=== PATIENT | male | born 1975 | race Caucasian/White ===

== ENCOUNTER 2017-10-29 16:03 | Emergency (ER) | payer OTHER ==
[~2017-10-29] VITALS: Ht 185.4 cm; Wt 120.0 kg
[~2017-10-29 16:03] MED LIST: AMOXICILLIN/CL875 MG OR; CITALOPRAM20 MG PO; HYDROCHLORO25 MG/TAB PO; KEFLEX500 M1 PO; SYNTHROID50 MCG PO
[2017-10-29] MEDS ORDERED: SYNTHROID100 MCG PO (17:05)
[2017-10-29 17:40] VITALS: BP 131/82
== END 2017-10-29 17:40 | disposition home or self-care (01) | DRG 951 ==
LOC: ED 16:03
DX: Z77.098 Contact with and (suspected) exposure to other hazardous, chiefly nonmedicinal, chemicals (principal); Y92.89 Other specified places as the place of occurrence of the external cause

== ENCOUNTER 2019-08-14 15:06 | Emergency (ER) | payer OTHER ==
[~2019-08-14] VITALS: Ht 185.4 cm; Wt 100.0 kg
[~2019-08-14 15:06] MED LIST changes: +SYNTHROID100 MCG PO
[2019-08-14 17:07] LABS: HEMOGLOBIN 16.1 g/dl (14.0-18.0); IMMATURE GRANULOCYTES 0.4 % (0.0-5.0); MEAN CELL VOLUME 86.8 fL CALC (80.0-100.0); MEAN CORPUSCULAR HGB CONC 32.2 g/L CALC (32.0-36.0); NEUT# 7.98 thou/uL (1.82-7.42); RED BLOOD COUNT 5.76 mill/uL (4.70-6.10); RED CELL DISTRI WIDTH 12.7 % (11.5-15.5)
[2019-08-14 17:19] LABS: ANION GAP 17 (6-22 (CALC)); BUN 16 mg/dL (9-20); BUN/CREATININE RATIO 13 (12-20 (CALC)); CARBON DIOXIDE 28 mmol/l (22-30); CHLORIDE 101 mmol/l (95-108); CREATININE 1.2 mg/dL (0.7-1.3); GFR > 60 ML/MIN (>=60 (CALC)); GFR FOR AFR.AMER. > 60 ML/MIN (>=60 (CALC)); POTASSIUM 4.2 mmol/l (3.5-5.1); SODIUM 141 mmol/l (137-146)
[2019-08-14] MEDS ORDERED: KEFLEX500 MG PO (17:32)
[2019-08-14] MEDS ORDERED: INDOMETHACIN50 MG PO (17:32)
[2019-08-14 17:45] VITALS: BP 155/85
== END 2019-08-14 17:45 | disposition home or self-care (01) | DRG 554 ==
LOC: ED 15:06
DX: M10.9 Gout, unspecified (principal); L03.031 Cellulitis of right toe

== ENCOUNTER 2019-09-20 08:14 | Emergency (ER) | payer OTHER ==
[~2019-09-20] VITALS: Ht 185.4 cm; Wt 260.0 kg
[~2019-09-20 08:14] MED LIST changes: +INDOMETHACIN50 MG PO; +KEFLEX500 MG PO
[2019-09-20] MEDS ORDERED: CYCLOBENZAPR5 MG PO (08:50)
[2019-09-20] MEDS ORDERED: VOLTAREN1%GEL TOP (08:50)
[2019-09-20 09:02] VITALS: BP 132/92
== END 2019-09-20 09:18 | disposition home or self-care (01) | DRG 563 ==
LOC: ED 08:14
DX: S39.012A Strain of muscle, fascia and tendon of lower back, initial encounter (principal); I10 Essential (primary) hypertension; F17.200 Nicotine dependence, unspecified, uncomplicated; X50.0XXA Overexertion from strenuous movement or load, initial encounter; Y93.F2 Activity, caregiving, lifting; Y99.0 Civilian activity done for income or pay